=== PATIENT | female | born 1950 | race Caucasian/White ===

== ENCOUNTER 2016-05-11 08:56 | Outpatient (CLI) | payer OTHER ==
--- NOTE | 2016-05-11 09:48 | DIAGNOSTIC IMAGING REPORT ---
PROCEDURE: US ABDOMEN ULTRASOUND-COMPLETE INDICATION: ABN LIVER FUNCTION TEST TECHNIQUE: Moya scale and color Doppler sonographic images of the abdomen were obtained. COMPARISON: None. FINDINGS: Liver measures 19.6 cm with diffuse increased echogenicity, with sparing around the gallbladder. Normal gallbladder and CBD (6.1 mm). Normal spleen and pancreas. Aorta and IVC are patent. Normal kidneys. Right kidney measures 11 cm and left kidney 10.4 cm. IMPRESSION: 1. Hepatic steatosis versus intrinsic liver disease.
== END 2016-05-11 23:00 ==
LOC: US SRH 08:56
DX: R94.5 Abnormal results of liver function studies (principal)